=== PATIENT | female | born 1985 | race Caucasian/White ===

== ENCOUNTER 2021-05-29 20:10 | Emergency (ER) | payer OTHER ==
[2021-05-29] MEDS ORDERED: Ondansetron 4 MG/2 ML SDV IVPUSH ONE (21:00)
[2021-05-29] MEDS ORDERED: Sodium Chloride 0.9% 1,000 ML IV ONE (21:00)
[2021-05-29] MEDS ORDERED: Promethazine 25 MG in Sodium Chloride 0.9% 50 ML IV ONE (21:49)
[2021-05-30] MEDS ORDERED: Ondansetron 4 MG Tab.DIS PO ONE (06:37)
== END 2021-05-30 11:00 | disposition home or self-care (01) ==
LOC: JD.ED 20:10
DX: H81.10 Benign paroxysmal vertigo, unspecified ear (principal); Z20.822 Contact with and (suspected) exposure to COVID-19
CPT/HCPCS: 36415; 80053; 80306; 80307; 81001; 81025; 83735; 85007; 85027; 86140; 87635; 96365; 96375; 99283; A9270; J2405; J2550; J7030; 99284; U0002